=== PATIENT | female | born 1935 | race Caucasian/White ===

== ENCOUNTER → 2017-02-08 09:11 | Outpatient (CLI) | payer MEDICARE, OTHER | LOC: D.MAMMO 09:11 | DX: Z12.31 Encounter for screening mammogram for malignant neoplasm of breast (principal) ==

== ENCOUNTER → 2017-05-23 08:23 | Outpatient (CLI) | payer MEDICARE, OTHER | END | disposition home or self-care (01) | LOC: D.CT 08:23 | DX: R41.3 Other amnesia (principal); R41.0 Disorientation, unspecified ==

== ENCOUNTER → 2018-06-24 10:07 | Outpatient (CLI) | payer MEDICARE, OTHER | END | disposition home or self-care (01) | LOC: D.RAD 10:07 | DX: K92.1 Melena (principal); K59.09 Other constipation; R10.30 Lower abdominal pain, unspecified ==

== ENCOUNTER → 2018-10-31 12:51 | Outpatient (CLI) | payer MEDICARE, OTHER | END | disposition home or self-care (01) | LOC: D.LAB 12:51 | DX: R19.7 Diarrhea, unspecified (principal) ==

== ENCOUNTER 2018-12-10 09:50 | Inpatient (IN) | payer MEDICARE, OTHER ==
[~2018-12-10] VITALS: Ht 165.1 cm; Wt 63.5 kg
[2018-12-10] MEDS ORDERED: PEPCID40 MG PO (09:56)
[2018-12-10] MEDS ORDERED: KLOR-CON 88 MEQ PO (09:56)
[2018-12-10] MEDS ORDERED: BENICAR40 MG PO (09:56)
[2018-12-10] MEDS ORDERED: ZOLOFT50 MG PO (09:56)
[2018-12-10] MEDS ORDERED: CYMBALTA30 MG PO (09:57)
[2018-12-10] MEDS ORDERED: SYNTHROID25 MCG PO (09:57)
[2018-12-10] MEDS ORDERED: TOPROL XL100 MG PO (09:57)
[2018-12-10] MEDS ORDERED: NAMENDA10 MG PO (09:57)
--- NOTE | 2018-12-10 10:25 | NUR ---
ASSISTED PT ON AND OFF THE BSC. URINE SPECIMEN COLLECTED AND SENT TO LAB AT THIS TIME. URINE APPEARS STRAW COLORED AND CLOUDY WITH FOUL ODOR. APPROX 300 ML OUTPUT.
--- NOTE | 2018-12-10 10:30 | NUR ---
PT TO RADIOLOGY AT THIS TIME.
--- NOTE | 2018-12-10 10:42 | NUR ---
PT RETURNED FROM RADIOLOGY AT THIS TIME.
[2018-12-10 10:48] LABS: APPEARANCE HAZY (CLEAR); BILIRUBIN NEGATIVE (NEGATIVE); COLOR STRAW (YELLOW); GLUCOSE NEGATIVE (NEGATIVE); KETONE NEGATIVE (NEGATIVE); NITRITE POSITIVE (NEGATIVE); PROTEIN TRACE mg/dL (NEGATIVE); SPECIFIC GRAVITY 1.005 (1.005-1.020); UROBILINOGEN NORMAL (NORMAL)
--- NOTE | 2018-12-10 10:49 | NUR ---
PT TO RADIOLOGY AT THIS TIME.
[2018-12-10 10:50] LABS: BACTERIA MANY /hpf (NONE SEEN); EPITHELIAL CELLS 0-5 /hpf (0-5); RED CELLS - URINE NONE SEEN /hpf (0-5)
--- NOTE | 2018-12-10 11:05 | NUR ---
PT RETURNED FROM RADIOLOGY
--- NOTE | 2018-12-10 11:14 | NUR ---
ASSISTED PT TO BSC.
--- NOTE | 2018-12-10 11:24 | NUR ---
BARBARA ACHARYA, AT BEDSIDE UPDATING PT AND FAMILY ON POC.
[2018-12-10 11:36] LABS: BASOPHILS 0.4 % (0-2); HEMATOCRIT 36.4 % (36.0-48.0); IMMATURE GRANULOCYTES 0.1 % (0-5); LYMPHOCYTES 29.1 % (15-50); MCH 30.5 pg (26.0-34.0); MCV 92.6 fL (80.0-100.0); MEAN PLATELET VOLUME 10.3 fL (7.4-10.4); MONOCYTES 10.3 % (2-11); NEUTROPHILS 58.1 % (40-80); PLATELET COUNT 208 10x3/uL (130-400); RBC 3.93 10x6/uL (4.00-5.40); RDW 13.1 % (11.5-14.5); WBC 7.1 10x3/uL (4.8-10.8)
--- NOTE | 2018-12-10 11:55 | NUR ---
PROVIDED PT WITH ICE WATER
[2018-12-10 12:25] LABS: ALBUMIN 3.3 g/dL (3.4-5.0); ANION GAP 8.1 mmol/L (8-16); BILIRUBIN - TOTAL 0.5 mg/dL (0.2-1.3); CALCIUM 8.9 mg/dL (8.5-10.1); CARBON DIOXIDE 32.9 mmol/L (21.0-32.0); PROTEIN - SERUM 7.2 g/dL (6.4-8.2)
[2018-12-10 12:34] LABS: THYROID STIMULATING HORMONE 1.75 uIU/mL (0.36-3.74)
[2018-12-10 12:35] VITALS: BP 198/81; BMI 23.3
[2018-12-10 13:32] VITALS: BP 137/73
--- NOTE | 2018-12-10 17:11 | NUR ---
PATIENT RECIEVED FROM ER WITH REPORT OF INCREASED LOWER BACK PAIN, LOWER EXTREMITY WEAKNESS UNABLE TO PERFORM USUAL ADLS AT HOME AND ALSO HAS UTI. ROCEPHIN GIVEN IN ER. DR FOSTER NOTIFIED AND KARLENE STARTED FOR PAIN. PATIENT IS ALERT AND ORIENTED WITH FORGETFULNESS REPORTED BY PATIENT AND FAMILY MEMBER. PATIENT ORIENTED TO ROOM. FALL PRECAUTIONS INITIATED.
[2018-12-10 17:19] VITALS: BP 140/72
[2018-12-10 21:47] VITALS: BP 133/47
--- NOTE | 2018-12-11 02:50 | NUR ---
REC'D. IN BED HOB ELEVATED 40 DEGREE'S.AAO X3 AT PRESENT TIME.CONTINUES TO C/O LOW BACK PAIN THAT RADIATES DOWN BOTH LATERAL SIDES OF LEGS.WIGGLES TOES AND DORSIFLEXES WITHOUT DIFFICULTY.PEDAL PULSE PRESENT.WILL CONTINUE TO MONITOR FOR ANY CHGES.AND FOLLOW CURRENT PLAN OF CARE
[2018-12-11 04:53] VITALS: BP 124/50
--- NOTE | 2018-12-11 08:19 | NUR ---
I have reviewed this patient and I concur with the Shift Assessment completed by the Licensed Practical Nurse today this shift.
--- NOTE | 2018-12-11 08:21 | NUR ---
I have reviewed this patient and I concur with the Shift Assessment completed by the Licensed Practical Nurse today this shift.
[2018-12-11 08:39] VITALS: BP 170/64
[2018-12-11 13:13] VITALS: BP 119/37
[2018-12-11 14:36] VITALS: Ht 165.1 cm; Wt 63.5 kg
--- NOTE | 2018-12-11 15:16 | HP ---
PATIENT: YOGESH MTZ MEDICAL RECORD: [id number] ACCOUNT: [id number] LOCATION:D.[facility] [id number] : 34 ADMISSION DATE: 12/10/18 PCP: PORSHA FOSTER MD HISTORY AND PHYSICAL EXAMINATION DATE OF ADMISSION: 12/10/2018 CHIEF COMPLAINT: Weakness and pain. HISTORY: This is an 83-year-old female with history of dementia, arthritis, and hypertension, who was brought in via EMS complaining of back pain, right hip pain, right knee pain, and right leg pain. She has had a bad right knee for a long time and has been getting steroid injections into the knee by Dr. Hart at [facility]. She states she got up early this morning, went to the bathroom, sat down on the commode, and had a lot of trouble getting back up due to pain and weakness in her back and leg. She did get up and made it back to bed; but when she got up again to use the bathroom, she was not able to get up and states she just could not go anymore with this increased weakness. She was having difficulty ambulating. She was brought to the Emergency Room, where her lab was all okay except urinalysis showed that she had urinary tract infection. An x-ray of the right hip showed nothing acute. CT of the lumbar spine showed degenerative changes and mild right hydronephrosis. She is admitted for UTI, weakness, worsening back pain, and right leg pain. PAST MEDICAL HISTORY: She was diagnosed with dementia approximately a year ago. She has overactive bladder, reflux, hyperlipidemia, hypertension, hypothyroidism, osteoarthritis, and osteopenia. PAST SURGICAL HISTORY: Lumbar laminectomy by Dr. Zavala on 08/18/2015. She has had a bladder suspension. She has had a hysterectomy and had a cholecystectomy in the past. ALLERGIES: TODAY, SHE SAID THAT SHE DOES NOT HAVE ANY ALLERGIES, BUT IT HAS BEEN ON MY RECORDS IN MY OFFICE THAT SHE IS ALLERGIC TO SULFA AND VERAPAMIL. HABITS: No tobacco, alcohol, or drugs. SOCIAL HISTORY: She is . I believe she lives with her sister or sister lives nearby. FAMILY HISTORY: Noncontributory for this 83 year old. HOME MEDICATIONS: Include olmesartan 40 mg a day, sertraline 50 mg a day, Pepcid 40 mg a day, levothyroxine 50 mcg a day, duloxetine 30 mg daily, Namenda 10 mg twice a day, and Toprol-XL 100 once a day. REVIEW OF SYSTEMS: GENERAL: No major weight changes. HEENT: No particular sinus or allergy problems. RESPIRATORY: No history of asthma or emphysema. CARDIAC: No history of heart disease. GASTROINTESTINAL: She has reflux. GENITOURINARY: No significant problems with urinary infections. MUSCULOSKELETAL: She has had arthritis and particular pain in her right knee. Ortho has been trying to avoid joint replacement. HISTORY AND PHYSICAL [id number] JOHNORALIAYOGESH NEUROLOGIC: She has dementia, diagnosed by psychologist. PSYCHIATRIC: She has some depression. PHYSICAL EXAMINATION: VITAL SIGNS: Temperature 98.1, pulse 67, respirations 19, blood pressure 140/72, and O2 sat 96%. NEUROLOGIC: She is easily awakened. She does not appear in acute distress. She seems to be at her baseline of dementia. SKIN: Warm and dry. HEENT: Grossly within normal limits. NECK: Supple. No JVD or bruit. HEART: Regular rate and rhythm without murmur. LUNGS: Clear. ABDOMEN: Soft. MUSCULOSKELETAL: She has some generalized pain in her lower lumbar spine area and pain in her right hip and down her right leg. Straight leg raises are negative for radiating pain. LABORATORY DATA: Basic metabolic panel is okay. Liver functions are okay. Lactic acid normal at 1.1. TSH normal at 1.75. CBC is normal. Urinalysis shows straw hazy urine, positive nitrite, positive 1+ leukocyte esterase, 10-25 white blood cells, many bacteria, and 0-5 epithelial cells. DIAGNOSTIC DATA: Right hip x-ray shows nothing acute, no fracture. CT of the lumbar spine shows multilevel degenerative changes in the lumbar spine. Mild spinal canal narrowing at L3-L4 and L4-L5. Neural foraminal narrowing on the right at L3-L4, bilaterally at L4-L5, and on the left at L5-S1. Moderate amount of fecal material visualized in the colon. Mild right hydronephrosis. ASSESSMENT: 1. UTI with weakness. 2. 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 PLAN: IV antibiotics. Urine culture has been done. Physical therapy consult. We will try some IV steroids and see if that might help her pain-type situation. Other tests and procedures as warranted. TRANSINT:[id number] Voice Confirmation ID: [id number] DOCUMENT ID: [id number] PORSHA FOSTER MD at 1516 CC: [id number] DICTATION DATE: 12/10/181936 RENEWABLE ENERGY CONSULTANT: 12/10/182000 ADM IN [facility] [address] [id number]
[2018-12-11 17:36] VITALS: BP 119/59
[2018-12-11 20:50] VITALS: BP 167/54
--- NOTE | 2018-12-11 21:09 | NUR ---
REC'D. ASSISTED TO BATHROOM. PERICARE GIVEN.BRIEF AND LINENS CHGED.CONTINUE TO C/O LOW BACK AND BILAT. LEG PAIN.WILL CONTINUE TO MONITOR FOR ANY CHGES. AND FOLLOW CURRENT PLAN OF CARE
[2018-12-12 00:50] VITALS: BP 113/62
[2018-12-12 04:47] VITALS: BP 146/57
--- NOTE | 2018-12-12 05:15 | NUR ---
I have reviewed this patient and I concur with the Shift Assessment completed by the Licensed Practical Nurse today this shift.
--- NOTE | 2018-12-12 08:00 | NUR ---
PT RESTING IN BED SITTING UP EATING BREAKFAST. FAMILY AT BEDSIDE. NO ACUTE DISTRESS NOTED. PT VOICES "FEELING BETTER TODAY. I BELIEVE THAT MEDICINE IS HELPING MY BACK". IV TO LEFT FOREARM WITH NS @ 125ML/HR INFUSING VIA PUMP. SITE WITHOUT REDNESS OR EDEMA. DENIES FURTHER NEEDS AT THIS TIME. CL WITHIN REACH. ENCOURAGED TO CALL WITH NEEDS. CONTINUE POC
[2018-12-12 09:48] VITALS: BP 154/64
[2018-12-12 13:19] VITALS: BP 103/52
[2018-12-12] MEDS ORDERED: KEFLEX500 MG PO (13:44)
[2018-12-12] MEDS ORDERED: MEDROL DOSE PACK4 MG PO (13:44)
--- NOTE | 2018-12-12 14:55 | MORECARE ---
CASE MANAGEMENT DISCHARGE SUMMARY PATIENT: YOGESH MTZ UNIT: [id number] ADM DATE: 12/10/18 AGE: 83 : 34 SEX: F ROOM/BED: D.2238 AUTHOR: TRAVIS BARR PHYSICIAN: REFERRING PHYSICIAN: PORSHA FOSTER MD DATE OF SERVICE: 12/12/18 Discharge Plan Patient Name: YOGESH MTZ Facility: [facility]:[place] : 1935 Planned Disposition: Home Anticipated Discharge Date: 12/12/18 Discharge Date: Expected LOS: 2 Initial Reviewer: [email or web address] Initial Review Date: 12/12/2018 Generated: 12/12/18 3:54 pm Comments DCP- Discharge Planning Updated by [email or web address]: Delphine Rangel on 12/12/18 1:[address] Patient Name: YOGESH MTZ Admission Status: ER Accout number: [id number] Admission Date: 12-10-2018 : 1935 Admission Diagnosis:URINARY TRACT INFECTION, SITE NOT SPECIFIED Attending: PORSHA FOSTER Current LOS: 2 Anticipated DC Date: 12-12-2018 Planned Disposition: Home Primary Insurance: MEDICARE A & B Discharge Planning Comments: CM met with patient to complete initial dc planning assessment. CM educated patient on the CM role and verbal consent given by patient to complete assessment. Patient lives in her own home and her adult daughter and son in law live with her. She states she is completely independent with all of her care. She states she only uses her cane as needed. She is ambulating in the room when I entered. Her sister (Ariadne) is in the room and verbal permission received to complete discharge assessment with family at bedside. At discharge patient plans to return and feels this is a safe discharge. CM discussed availability of home health, rehab services, and medical equipment. Patient denied known discharge needs at this time. She is discharging home today. CM will continue to follow and will assist as needed with dc plans/needs. Distance Education Teacher: Delphine Rangel DCPIA - Discharge Planning Initial Assessment Updated by [email or web address]: Delphine Rangel on 12/12/18 2:49 pm * Is the patient Alert and Oriented? Yes * PCP Dr. Foster * Pharmacy [facility] on [address] * Preadmission Environment Home with Family * ADLs Independent * Equipment Cane * List name and contact numbers for known caregivers / representatives who currently or will assist patient after discharge: Ariadne Ashley - [facility] - [phone] Maddie Hurley [facility] - [phone] * Verbal permission to speak to the caregivers and representatives has been obtained from the patient. Yes * Community resources currently utilized None * Additional services required to return to the preadmission environment? No * Can the patient safely return to the preadmission environment? Yes * Has this patient been hospitalized within the prior 30 days at any hospital? No Patient Name: YOGESH MTZ Page [id number] at 1455 All edits/amendments must be made on the electronic document DICTATION DATE: 12/12/181453 SALVAGE CUTTER: JESSIKA 12/12/181453 RPT#: [id number] DC DATE: STATUS: ADM IN [facility] [address] [place] [address] END OF REPORT
--- NOTE | 2018-12-12 15:00 | NUR ---
PT DISCHARGE INSTRUCTIONS GIVEN FOR DISCHARGE. EDUCATED REGARDING UTI, WEAKNESS S/S OF INFECTION. PT AND FAMILY VOICE UNDERSTANDING. DISCUSSED FOLLOW UP APPOINTMENT WITH DR. FOSTER AND MEDICATIONS BEING PRESCRIBED AND CONTINUING HOME MEDICATIONS. IV D/C'D FROM LEFT FOREARM, CATH INTACT. PT TAKEN OUT TO [facility]T VEHICLE VIA W/C WITH ALL PERSONAL BELONGINGS.
== END 2018-12-12 15:10 | disposition home or self-care (01) | DRG 690 ==
LOC: D.ER 09:50 → D.MS 11:54
PROVIDERS: Family Medicine; ADMIT Family Medicine; ATTEND Family Medicine
DX: N39.0 Urinary tract infection, site not specified (principal); Z74.09 Other reduced mobility; F03.90 Unspecified dementia, unspecified severity, without behavioral disturbance, psychotic disturbance, mood disturbance, and anxiety; M47.9 Spondylosis, unspecified; M17.11 Unilateral primary osteoarthritis, right knee

== ENCOUNTER 2019-04-11 17:00 | Emergency (ER) | payer MEDICARE, OTHER ==
[~2019-04-11] VITALS: Ht 165.1 cm; Wt 63.6 kg
[~2019-04-11 17:00] MED LIST: BENICAR40 MG PO; CYMBALTA30 MG PO; KEFLEX500 MG PO; KLOR-CON 88 MEQ PO; MEDROL DOSE PACK4 MG PO; NAMENDA10 MG PO; PEPCID40 MG PO; SYNTHROID25 MCG PO; TOPROL XL100 MG PO; ZOLOFT50 MG PO
[2019-04-11 17:04] VITALS: Ht 165.1 cm; Wt 63.6 kg
[2019-04-11 19:51] VITALS: BP 183/67
== END 2019-04-11 19:51 | disposition home or self-care (01) ==
LOC: D.ER 17:00
DX: R51 Headache (principal); S00.93XA Contusion of unspecified part of head, initial encounter; W01.0XXA Fall on same level from slipping, tripping and stumbling without subsequent striking against object, initial encounter; M54.2 Cervicalgia; I69.319 Unspecified symptoms and signs involving cognitive functions following cerebral infarction; M25.552 Pain in left hip; F03.90 Unspecified dementia, unspecified severity, without behavioral disturbance, psychotic disturbance, mood disturbance, and anxiety

== ENCOUNTER → 2020-09-22 21:18 | Outpatient (CLI) | payer MEDICARE, OTHER ==
[2019-04-11 17:04] VITALS: BMI 23.3
[~2020-09-22 21:18] MED LIST changes: +ACETAMINOPHEN500 M1 PO; +ALTAMIST60 ML NS; +MACRODANTIN50 MG PO; +MIRALAX17 GM PO; +NAPROSYN500 MG PO; +SYNTHROID50 MCG PO; +TOPROL XL50 MG PO; +VESICARE5 MG PO; +VOLTAREN100 GM TOPICAL
[2020-09-22 21:43] LABS: ALBUMIN 3.7 g/dL (3.4-5.0); ANION GAP 18.2 mmol/L (8-16); BILIRUBIN - TOTAL 0.46 mg/dL (0.2-1.3); CALCIUM 9.1 mg/dL (8.5-10.1); CARBON DIOXIDE 20.9 mmol/L (21.0-32.0); CREATININE - SERUM 1.5 mg/dL (0.6-1.3); PROTEIN - SERUM 7.8 g/dL (6.4-8.2)
[2020-09-22 21:46] LABS: POTASSIUM - SERUM 6.1 mmol/L (3.5-5.1)
== END | disposition home or self-care (01) ==
LOC: D.LABREF 21:18
PROVIDERS: ATTEND Family Medicine
DX: I10 Essential (primary) hypertension (principal); F41.8 Other specified anxiety disorders; F03.90 Unspecified dementia, unspecified severity, without behavioral disturbance, psychotic disturbance, mood disturbance, and anxiety

== ENCOUNTER 2020-09-23 19:27 | Inpatient (IN) | payer MEDICARE, OTHER ==
[~2020-09-23] VITALS: Ht 165.1 cm; Wt 68.0 kg
[~2020-09-23 19:27] MED LIST changes: -ACETAMINOPHEN500 M1 PO; -ALTAMIST60 ML NS; -MACRODANTIN50 MG PO; -MIRALAX17 GM PO; -NAPROSYN500 MG PO; -SYNTHROID50 MCG PO; -TOPROL XL50 MG PO; -VESICARE5 MG PO; -VOLTAREN100 GM TOPICAL
[2020-09-23] MEDS ORDERED: VOLTAREN100 GM TOPICAL (19:49)
[2020-09-23] MEDS ORDERED: ACETAMINOPHEN500 M1 PO (19:49)
[2020-09-23] MEDS ORDERED: NAMENDA10 MG PO (19:50)
[2020-09-23] MEDS ORDERED: CYMBALTA30 MG PO (19:50)
[2020-09-23] MEDS ORDERED: SYNTHROID50 MCG PO (19:50)
[2020-09-23] MEDS ORDERED: PEPCID40 MG PO (19:50)
[2020-09-23] MEDS ORDERED: NAPROSYN500 MG PO (19:51)
[2020-09-23] MEDS ORDERED: MIRALAX17 GM PO (19:51)
[2020-09-23] MEDS ORDERED: TOPROL XL50 MG PO (19:51)
[2020-09-23] MEDS ORDERED: ALTAMIST60 ML NS (19:54)
[2020-09-23] MEDS ORDERED: BENICAR40 MG PO (19:54)
[2020-09-23] MEDS ORDERED: MACRODANTIN50 MG PO (19:54)
[2020-09-23] MEDS ORDERED: VESICARE5 MG PO (19:55)
[2020-09-23 20:38] LABS: BASOPHILS 0.4 % (0-2); EOSINOPHILS 6.5 % (0-7); HEMATOCRIT 34.2 % (36.0-48.0); HEMOGLOBIN 11.3 g/dL (12-16); IMMATURE GRANULOCYTES 0.1 % (0-5); LYMPHOCYTE ABS# 1.73 10x3/uL (1.18-3.74); LYMPHOCYTES 21.6 % (15-50); MCH 30.7 pg (26.0-34.0); MCV 92.9 fL (80.0-100.0); MEAN PLATELET VOLUME 9.4 fL (7.4-10.4); MONOCYTES 14.2 % (2-11); NEUTROPHIL ABS# 4.58 10x3/uL (1.56-6.13); NEUTROPHILS 57.2 % (40-80); RBC 3.68 10x6/uL (4.00-5.40); RDW 13.1 % (11.5-14.5)
[2020-09-23 20:39] LABS: PLATELET COUNT 300 10x3/uL (130-400)
[2020-09-23 20:51] LABS: CALCIUM 9.2 mg/dL (8.5-10.1)
[2020-09-23 20:52] LABS: ANION GAP 14.6 mmol/L (8-16); CARBON DIOXIDE 26.5 mmol/L (21.0-32.0); CREATININE - SERUM 1.9 mg/dL (0.6-1.3); POTASSIUM - SERUM 5.1 mmol/L (3.5-5.1)
[2020-09-23 21:05] LABS: ALBUMIN 3.9 g/dL (3.4-5.0); BILIRUBIN - TOTAL 0.35 mg/dL (0.2-1.3); MAGNESIUM - SERUM 2.4 mg/dL (1.8-2.4); PROTEIN - SERUM 7.4 g/dL (6.4-8.2); THYROID STIMULATING HORMONE 6.64 uIU/mL (0.36-3.74)
[2020-09-23 21:08] LABS: BILIRUBIN NEGATIVE (NEGATIVE); KETONE NEGATIVE (NEGATIVE); NITRITE NEGATIVE (NEGATIVE); UROBILINOGEN NORMAL mg/dL (< 2)
[2020-09-23 21:12] LABS: WHITE CELLS - URINE >50 HPF (0-4)
[2020-09-23 21:13] LABS: BACTERIA MANY HPF (NONE SEEN); SQUAMOUS EPITHELIAL 0-5 HPF (0-4)
[2020-09-23 22:13] LABS: APTT 36.1 SECONDS (22.8-39.4); INR 1.05 (0.85-1.17); PROTIME 12.7 SECONDS (11.6-15.0)
[2020-09-23 22:25] LABS: CKMB 1.1 U/L (0.0-3.6); CREATINE KINASE 51 UL (21-215)
[2020-09-23 22:26] LABS: TROPONIN-I < 0.017 ng/mL (0.000-0.060)
[2020-09-24] VITALS (7 sets, daily range): BP systolic 115–186; BP diastolic 53–76; Ht 165.1 cm; Wt 68.0 kg
--- NOTE | 2020-09-24 01:42 | NUR ---
2229--\ PT RECEIVED FROM ER PER RONNI. DAUGHTER AT BEDSIDE. PT ALERT & ORIENTED TO SELF/LOCATION. PLEASANT. VERY SLEEPY. DAUGHTER ANSWERS QUESTIONS FOR ADMISSION. DENTURES IN CUP AT SINK. IS INCONTINENT OF URINE. SLOW, WOBBLY GAIT TO BATHROOM. IV TO LEFT AC VERY POSITIONAL. SCD'S ON/WORKING DENIES ANY PAIN. WILL CONTINUE TO MONITOR
[2020-09-24 05:47] LABS: BASOPHILS 0.6 % (0-2); EOSINOPHILS 5.2 % (0-7); HEMATOCRIT 31.4 % (36.0-48.0); HEMOGLOBIN 10.3 g/dL (12-16); IMMATURE GRANULOCYTES 0.2 % (0-5); LYMPHOCYTE ABS# 1.55 10x3/uL (1.18-3.74); MCH 30.2 pg (26.0-34.0); MCHC 32.8 g/dL (31.0-37.0); MCV 92.1 fL (80.0-100.0); MEAN PLATELET VOLUME 9.3 fL (7.4-10.4); MONOCYTES 13.4 % (2-11); NEUTROPHIL ABS# 6.25 10x3/uL (1.56-6.13); NEUTROPHILS 64.6 % (40-80); PLATELET COUNT 279 10x3/uL (130-400); RBC 3.41 10x6/uL (4.00-5.40); WBC 9.7 10x3/uL (4.8-10.8)
[2020-09-24 05:48] LABS: ALBUMIN 3.2 g/dL (3.4-5.0); ANION GAP 13.9 mmol/L (8-16); BILIRUBIN - TOTAL 0.28 mg/dL (0.2-1.3); CALCIUM 8.4 mg/dL (8.5-10.1); CARBON DIOXIDE 23.9 mmol/L (21.0-32.0); CREATININE - SERUM 1.6 mg/dL (0.6-1.3); MAGNESIUM - SERUM 2.1 mg/dL (1.8-2.4); POTASSIUM - SERUM 4.8 mmol/L (3.5-5.1); PROTEIN - SERUM 6.7 g/dL (6.4-8.2)
--- NOTE | 2020-09-24 07:30 | NUR ---
Lying in bed with eyes closed, respirations slow/deep/even, rouses easily with verbal stimulus, T/R self with assist ad kezia, cont of B/B with episodes of incont, uses incont pads PRN, pericare provided with daily bath and PRN, denies pain/other discomfort at this time, call light/phone/water within reach, no s/s of acute distress observed.
--- NOTE | 2020-09-24 14:36 | NUR ---
REHAB PRESCREEN RECEIVED. WE ARE WAITING ON THE PT AND OT EVALUATIONS IN ORDER TO MAKE OUR DETERMINATION. I HAVE SPOKEN WITH ALEXIA AND THE OCCUPATIONAL THERAPIST WILL NOT BE HERE UNTIL 1529. SHE IS AT THE TOP OF THE LIST TO BE SEEN WHEN SHE ARRIVES. WE WILL LOOK AT THE CHART AGAIN AFTER THAT TIME TO SEE WHAT HER FUNCTIONAL STATUS IS. THANK YOU FOR THIS REFERRAL. SHAYE WAHL RN CLINICAL LIAISON, INPATIENT REHAB.
--- NOTE | 2020-09-24 19:30 | NUR ---
PT IN BED, AAO X 3, RESP EVEN AND UNLABORED,NO DISTRESS NOTED, CL IN REACH, SR UP X 2, PT DAUGHTER AT BEDSIDE AT THIS TIME.
--- NOTE | 2020-09-25 03:18 | NUR ---
I have reviewed this patient and I concur with the Shift Assessment completed by the Licensed Practical Nurse today this shift.
[2020-09-25 06:22] LABS: BASOPHILS 0.6 % (0-2); EOSINOPHILS 5.1 % (0-7); HEMATOCRIT 34.9 % (36.0-48.0); HEMOGLOBIN 11.5 g/dL (12-16); IMMATURE GRANULOCYTES 0.1 % (0-5); LYMPHOCYTE ABS# 1.31 10x3/uL (1.18-3.74); LYMPHOCYTES 19.2 % (15-50); MCH 30.6 pg (26.0-34.0); MCV 92.8 fL (80.0-100.0); MEAN PLATELET VOLUME 9.3 fL (7.4-10.4); NEUTROPHIL ABS# 4.17 10x3/uL (1.56-6.13); PLATELET COUNT 290 10x3/uL (130-400); RBC 3.76 10x6/uL (4.00-5.40); RDW 13.1 % (11.5-14.5)
[2020-09-25 06:23] LABS: WBC 6.8 10x3/uL (4.8-10.8)
[2020-09-25 06:56] LABS: ALBUMIN 3.2 g/dL (3.4-5.0); ANION GAP 14.9 mmol/L (8-16); BILIRUBIN - TOTAL 0.29 mg/dL (0.2-1.3); CARBON DIOXIDE 23.4 mmol/L (21.0-32.0); CREATININE - SERUM 1.2 mg/dL (0.6-1.3); MAGNESIUM - SERUM 2.1 mg/dL (1.8-2.4); POTASSIUM - SERUM 4.3 mmol/L (3.5-5.1); PROTEIN - SERUM 7.2 g/dL (6.4-8.2)
[2020-09-25 07:49] VITALS: BP 164/67
[2020-09-25 15:46] VITALS: BP 175/70
[2020-09-25 20:30] VITALS: BP 187/86
[2020-09-26 00:30] VITALS: BP 168/78
[2020-09-26 04:30] VITALS: BP 201/106
[2020-09-26 06:19] LABS: EOSINOPHILS 4.7 % (0-7); HEMATOCRIT 36.2 % (36.0-48.0); HEMOGLOBIN 11.7 g/dL (12-16); IMMATURE GRANULOCYTES 0.1 % (0-5); LYMPHOCYTE ABS# 1.64 10x3/uL (1.18-3.74); LYMPHOCYTES 23.1 % (15-50); MCH 30.2 pg (26.0-34.0); MCHC 32.3 g/dL (31.0-37.0); MCV 93.5 fL (80.0-100.0); MEAN PLATELET VOLUME 9.2 fL (7.4-10.4); MONOCYTES 14.1 % (2-11); NEUTROPHIL ABS# 4.04 10x3/uL (1.56-6.13); PLATELET COUNT 291 10x3/uL (130-400); RBC 3.87 10x6/uL (4.00-5.40); RDW 13.1 % (11.5-14.5); WBC 7.1 10x3/uL (4.8-10.8)
[2020-09-26 06:49] LABS: ALBUMIN 3.5 g/dL (3.4-5.0); ANION GAP 14.2 mmol/L (8-16); BILIRUBIN - TOTAL 0.31 mg/dL (0.2-1.3); CALCIUM 9.1 mg/dL (8.5-10.1); CARBON DIOXIDE 23.3 mmol/L (21.0-32.0); CREATININE - SERUM 1.2 mg/dL (0.6-1.3); MAGNESIUM - SERUM 2.2 mg/dL (1.8-2.4); POTASSIUM - SERUM 4.5 mmol/L (3.5-5.1); PROTEIN - SERUM 7.9 g/dL (6.4-8.2)
[2020-09-26] MEDS ORDERED: CIPRO500 MG PO (08:34)
[2020-09-26 08:43] VITALS: BP 174/59
--- NOTE | 2020-09-26 12:45 | NUR ---
REPORT CALLED TO FARIDEH MARRERO IN REHAB.
--- NOTE | 2020-09-26 13:30 | NUR ---
REHAB FOLLOW UP: PT ACCEPTED TO INPATIENT REHAB AND CAN GO TO RM: [id number]. THIS INFORMATION HAS BEEN RELAYED TO CONOR SCHAFFER. WE LOOK FOWARD TO PROVIDING CARE TO MRS MTZ. SHAYE WAHL RN CLINICAL LIAISON, INPATIENT REHAB.
--- NOTE | 2020-09-26 13:33 | NUR ---
TRANSFERED TO W/C AND TO REHAB WITH PAPERS, BELONGINGS AND DAUGHTER.
--- NOTE | 2020-09-26 14:23 | MORECARE ---
CASE MANAGEMENT DISCHARGE SUMMARY PATIENT: YOGESH MTZ UNIT: [id number] ADM DATE: 09/23/20 AGE: 85 : 34 SEX: F ROOM/BED: D.2128 AUTHOR: CORTNEY,DOC PHYSICIAN: REFERRING PHYSICIAN: CIERRA KERR DO DATE OF SERVICE: 09/26/20 Case Management Discharge Planning Summary DCP REVIEW SUMMARY ANTICIPATED D/C DATE: 09/26/2020 EXPECTED LOS : 3 CASE STATUS: DCP Initiated INITIAL REVIEW: 09/23/2020 INITIAL REVIEWER: Miguel Becerra FINAL DISCHARGE DISPOSITION: : FINAL REVIEWER: FINAL REVIEW DATE: DCP Focus Questions & Answers QUESTION: ANSWER : PATIENT: YOGESH MTZ ENCOUNTER: [id number] MEDICAL RECORD#: [id number] ADMISSION DATE: 09/23/2020 DISCHARGE DATE: 09/26/2020 ATTENDING MD: CIERRA BENNETT : AGE: 85 MARITAL STATUS: W DC PLAN ID: [id number] FACILITY: [facility] PRINTED ON: 09/26/20 14:23 CT All edits/amendments must be made on the electronic document DICTATION DATE: 09/26/20 142 WOOD ROUTER HAND: JESSIKA 09/26/20 142 RPT#: [id number] DC DATE:09/26/20 STATUS: DIS IN [facility] [address] [place] [address] END OF REPORT
--- NOTE | 2020-09-26 14:34 | MORECARE ---
CASE MANAGEMENT DISCHARGE SUMMARY PATIENT: YOGESH MTZ UNIT: [id number] ADM DATE: 09/23/20 AGE: 85 : 34 SEX: F ROOM/BED: D.5531 AUTHOR: CORTNEY,DOC PHYSICIAN: REFERRING PHYSICIAN: CIERRA KERR DO DATE OF SERVICE: 09/26/20 Case Management Discharge Planning Summary COMMENTS ENTERED DATE: 09/26/20 14:24 CT COMMENT TYPE: Discharge Planning REVIEWER: Miguel Becerra [facility] RE[facility]. CM met with patient to complete DC plan and to evaluate needs. Patient is dependent for dressing and eating and lives with family. Patient has strong family support and her daughter, Tamie Haider, is present. Tamie stated that the patient's home is safe and has electricity and running water. Patient stated that the home has 3 steps to enter and she is able to manage the steps without difficulty. Patient stated that she has no problems paying for medications and she fills her medications at [facility] on [facility]. Tamie stated that the patient's primary care physician will be Dr. Kerr. CM discussed availability of home health, rehab services, and medical equipment. Patient initially declined IPR and stated that she would like to continue with [facility] at home, however after a brief discussion with her daughter, [facility] inpatient Rehab was selected. LILLY for [facility] inpatient Rehab signed and placed in chart. Patient stated she has a walker, cane, and wheelchair at home. Patient voiced no other needs at this time and is satisfied with DC plan. DC IMM delivered, explained, signed by the patient, and placed in chart. Signed form also left with the patient. CM will continue to follow and will assist as needed with dc plans/needs. DCP REVIEW SUMMARY ANTICIPATED D/C DATE: 09/26/2020 EXPECTED LOS : 3 CASE STATUS: DCP Initiated INITIAL REVIEW: 09/23/2020 INITIAL REVIEWER: Miguel Becerra FINAL DISCHARGE DISPOSITION: : FINAL REVIEWER: FINAL REVIEW DATE: DCP Focus Questions & Answers DCP Evaluation QUESTION: ANSWER Patient's current cognitive status: : *Oriented to person, place, situation, time and present Patient's ability to cope with chronic illness : d. No chronic illness Patient gives permission to discuss discharge plans with: (name, relationship and number) : daughter, Tamie Haider, Patient and/or caregiver agree upon recommended discharge plan? : Yes Family / Caregiver's ability to cope with chronic illness: : a. Adequate (ability to meet patient's medical needs, ensures patient attends medical appts.) Functional screen assessment: : Basic needs can adequately be met by self Does the patient have the ability to pay for or attain post discharge needs / services? : Yes Family / Caregiver's ability to cope with chronic illness: : a. Adequate (ability to meet patient's medical needs, ensures patient attends medical appts.) Partial Dependence, assistance required for: : Eating Partial Dependence, assistance required for: : Dressing Partial Dependence, assistance required for: : Bathing Equipment needed for post hospitalization: : None Is there a likelihood that the patient will require additional services to return to the preadmission environment? : Yes Living Arrangements: : Home with others Baseline cognitive status: : *Oriented to person, place, situation, time and present Patient with capacity for self-care or can be cared for in same environment as prior to hospitalization? : Yes Physical environment modification needed / anticipated for discharge: : No Medication Management: : Patient states can read and understand medication labels Medication Management: : Patient states can afford medications Pharmacy name(s): : [facility] Does Patient have transportation to get home and to follow-up medical appointments when discharged from the hospital? : Yes Would patient like to participate in any Care Coordination programs (if applicable): : Not applicable Does the patient have electricity at home? : Yes Does the patient have running water in their house? : Yes Equipment in use: : Wheelchair Equipment in use: : Walker - Rolling Equipment in use: : Cane - Single Leg Mental health screen: : No mental health history DCP Re-evaluation QUESTION: ANSWER Would patient like to participate in any Care Coordination programs (if applicable): : Not applicable PATIENT: YOGESH MTZ ENCOUNTER: [id number] MEDICAL RECORD#: [id number] ADMISSION DATE: 09/23/2020 DISCHARGE DATE: 09/26/2020 ATTENDING MD: CIERRA BENNETT : 1936- AGE: 85 MARITAL STATUS: W DC PLAN ID: [id number] FACILITY: [facility] PRINTED ON: 09/26/20 14:34 CT All edits/amendments must be made on the electronic document DICTATION DATE: 09/26/201433 MANAGER ESTATE: JESSIKA 09/26/20 143 RPT#: [id number] DC DATE:09/26/20 STATUS: DIS IN [facility] [address] [place] [address] END OF REPORT
--- NOTE | 2020-09-27 07:34 | MORECARE ---
CASE MANAGEMENT DISCHARGE SUMMARY PATIENT: YOGESH MTZ UNIT: [id number] ADM DATE: 09/23/20 AGE: 85 : 34 SEX: F ROOM/BED: D.8970 AUTHOR: CORTNEY,DOC PHYSICIAN: REFERRING PHYSICIAN: CIERRA KERR DO DATE OF SERVICE: 09/27/20 Case Management Discharge Planning Summary COMMENTS ENTERED DATE: 09/26/20 14:24 CT COMMENT TYPE: Discharge Planning REVIEWER: Miguel Becerra [facility] RE[facility]. CM met with patient to complete DC plan and to evaluate needs. Patient is dependent for dressing and eating and lives with family. Patient has strong family support and her daughter, Tamie Haider, is present. Tamie stated that the patient's home is safe and has electricity and running water. Patient stated that the home has 3 steps to enter and she is able to manage the steps without difficulty. Patient stated that she has no problems paying for medications and she fills her medications at [facility] on [facility] [address] [facility]. Tamie stated that the patient's primary care physician will be Dr. Kerr. CM discussed availability of home health, rehab services, and medical equipment. Patient initially declined IPR and stated that she would like to continue with [facility] at home, however after a brief discussion with her daughter, [facility] inpatient Rehab was selected. LILLY for [facility] inpatient Rehab signed and placed in chart. Patient stated she has a walker, cane, and wheelchair at home. Patient voiced no other needs at this time and is satisfied with DC plan. DC IMM delivered, explained, signed by the patient, and placed in chart. Signed form also left with the patient. CM will continue to follow and will assist as needed with dc plans/needs. DCP REVIEW SUMMARY ANTICIPATED D/C DATE: 09/26/2020 EXPECTED LOS : 3 CASE STATUS: DCP Complete INITIAL REVIEW: 09/23/2020 INITIAL REVIEWER: Miguel Becerra FINAL DISCHARGE DISPOSITION: 62 : Discharged/Trans to Rehab Facility Including Distinct Units of a Hospital FINAL REVIEWER: Miguel Becerra FINAL REVIEW DATE: 09/27/2020 DCP Focus Questions & Answers DCP Evaluation QUESTION: ANSWER Patient's current cognitive status: : *Oriented to person, place, situation, time and present Patient's ability to cope with chronic illness : d. No chronic illness Patient gives permission to discuss discharge plans with: (name, relationship and number) : daughterTamie, Patient and/or caregiver agree upon recommended discharge plan? : Yes Family / Caregiver's ability to cope with chronic illness: : a. Adequate (ability to meet patient's medical needs, ensures patient attends medical appts.) Functional screen assessment: : Basic needs can adequately be met by self Does the patient have the ability to pay for or attain post discharge needs / services? : Yes Family / Caregiver's ability to cope with chronic illness: : a. Adequate (ability to meet patient's medical needs, ensures patient attends medical appts.) Partial Dependence, assistance required for: : Bathing Partial Dependence, assistance required for: : Dressing Partial Dependence, assistance required for: : Eating Equipment needed for post hospitalization: : None Is there a likelihood that the patient will require additional services to return to the preadmission environment? : Yes Living Arrangements: : Home with others Baseline cognitive status: : *Oriented to person, place, situation, time and present Patient with capacity for self-care or can be cared for in same environment as prior to hospitalization? : Yes Physical environment modification needed / anticipated for discharge: : No Medication Management: : Patient states can afford medications Medication Management: : Patient states can read and understand medication labels Pharmacy name(s): : [facility] Does Patient have transportation to get home and to follow-up medical appointments when discharged from the hospital? : Yes Would patient like to participate in any Care Coordination programs (if applicable): : Not applicable Does the patient have electricity at home? : Yes Does the patient have running water in their house? : Yes Equipment in use: : Cane - Single Leg Equipment in use: : Walker - Rolling Equipment in use: : Wheelchair Mental health screen: : No mental health history DCP Re-evaluation QUESTION: ANSWER Would patient like to participate in any Care Coordination programs (if applicable): : Not applicable PATIENT: YOGESH MTZ ENCOUNTER: [id number] MEDICAL RECORD#: [id number] ADMISSION DATE: 09/23/2020 DISCHARGE DATE: 09/26/2020 ATTENDING MD: CIERRA BENNETT : AGE: 85 MARITAL STATUS: W DC PLAN ID: [id number] FACILITY: [facility] PRINTED ON: 09/27/20 7:34 CT All edits/amendments must be made on the electronic document DICTATION DATE: 09/27/20733 ROLL RECLAIMER: JESSIKA 09/27/2034 RPT#: [id number] DC DATE:09/26/20 STATUS: DIS IN [facility] [address] [facility] [address] END OF REPORT
== END 2020-09-26 13:34 | DRG 689 ==
LOC: D.ER 19:27 → D.M2 21:32
PROVIDERS: Emergency Medicine; ADMIT Family Medicine; ATTEND Family Medicine
DX: N39.0 Urinary tract infection, site not specified (principal); G93.41 Metabolic encephalopathy; E87.1 Hypo-osmolality and hyponatremia; N17.9 Acute kidney failure, unspecified; I12.9 Hypertensive chronic kidney disease with stage 1 through stage 4 chronic kidney disease, or unspecified chronic kidney disease; N18.9 Chronic kidney disease, unspecified; D64.9 Anemia, unspecified; R73.9 Hyperglycemia, unspecified; E78.5 Hyperlipidemia, unspecified; N32.81 Overactive bladder; K21.9 Gastro-esophageal reflux disease without esophagitis; E03.9 Hypothyroidism, unspecified; M19.90 Unspecified osteoarthritis, unspecified site; M85.80 Other specified disorders of bone density and structure, unspecified site; F03.90 Unspecified dementia, unspecified severity, without behavioral disturbance, psychotic disturbance, mood disturbance, and anxiety

== ENCOUNTER 2020-09-26 13:34 | Inpatient (IN) | payer MEDICARE, OTHER ==
[~2020-09-26] VITALS: Ht 165.1 cm; Wt 63.5 kg
[~2020-09-26 13:34] MED LIST changes: +ACETAMINOPHEN500 M1 PO; +ALTAMIST60 ML NS; +CIPRO500 MG PO; +MACRODANTIN50 MG PO; +MIRALAX17 GM PO; +NAPROSYN500 MG PO; +SYNTHROID50 MCG PO; +TOPROL XL50 MG PO; +VESICARE5 MG PO; +VOLTAREN100 GM TOPICAL
[2020-09-26 14:35] VITALS: BP 126/62; BMI 23.3
--- NOTE | 2020-09-26 14:57 | NUR ---
ADMIT TO REHAB FROM ACUTE CARE. BED ALARM PLACED ON BED. SIDE RAILS UP X2. SHE HAS HX OF DEMENTIA AND RECENT UTI. SHE IS CONFUSED. DTR IS WITH HER. NO SKIN BREAKDOWN NOTED.
[2020-09-26 19:00] VITALS: BP 122/60
--- NOTE | 2020-09-26 19:27 | NUR ---
PATIENT RECEIVED SITTING UP IN BED. ASSESSMENT & VITAL SIGNS DONE. NO C/O PAIN OR DISTRESS. BED LOW. ALARM ON. CALL LIGHT WITHIN REACH. WILL CONTINUE TO MONITOR.
--- NOTE | 2020-09-27 03:38 | NUR ---
PATIENT EYES CLOSED. RESPIRATIONS 18 & EVEN. BED LOW.ALARM ON. CALL LIGHT WITHIN REACH. WILL CONTINUE TO MONITOR.
[2020-09-27 07:49] LABS: BASOPHILS 0.9 % (0-2); EOSINOPHILS 4.6 % (0-7); HEMATOCRIT 33.5 % (36.0-48.0); LYMPHOCYTE ABS# 1.58 10x3/uL (1.18-3.74); LYMPHOCYTES 22.7 % (15-50); MCH 30.7 pg (26.0-34.0); MCHC 32.8 g/dL (31.0-37.0); MCV 93.6 fL (80.0-100.0); MEAN PLATELET VOLUME 9.1 fL (7.4-10.4); MONOCYTES 12.5 % (2-11); NEUTROPHIL ABS# 4.13 10x3/uL (1.56-6.13); NEUTROPHILS 59.3 % (40-80); PLATELET COUNT 278 10x3/uL (130-400); RBC 3.58 10x6/uL (4.00-5.40); RDW 13.1 % (11.5-14.5)
--- NOTE | 2020-09-27 07:50 | NUR ---
SHE IS IN BED, CONFUSED. SHE STATES SHE HAS NOT HAD A BM IN A FEW DAYS. INSTRUCTED HER ON THE IS, SHE DID 1000. THE CALL LIGHT IS WITHIN REACH AND THE BED ALARM IS ON.
[2020-09-27 07:55] LABS: ANION GAP 13.9 mmol/L (8-16); CALCIUM 9.1 mg/dL (8.5-10.1); CARBON DIOXIDE 25.1 mmol/L (21.0-32.0); CREATININE - SERUM 1.3 mg/dL (0.6-1.3)
[2020-09-27 08:24] VITALS: BP 140/57
[2020-09-27 12:37] VITALS: Ht 165.1 cm; Wt 63.5 kg
--- NOTE | 2020-09-27 12:44 | RHP ---
PATIENT: YOGESH MTZ MEDICAL RECORD: [id number] ACCOUNT: [id number] LOCATION:[facility] : 34 ADMISSION DATE: 09/26/20 REHABILITATION HISTORY AND PHYSICAL EXAMINATION POST ADMISSION PHYSICIAN EXAMINATION ADMITTING DIAGNOSES: Metabolic encephalopathy secondary to urinary tract infection with Proteus mirabilis. HISTORY OF PRESENT ILLNESS: The patient is an 85-year-old female patient who resides at home with 24-hour sitters. She was requiring supervision only with ADLs. Approximately about a month ago, she began declining and becoming more confused. On 09/23, she presented to the ER. The patient was seen and evaluated. She was found to have progressive weakness, confusion and disorientation. She usually uses a walker at home, but she was not able to use that because she could hardly stand and she was falling. She has been followed by Dr. Deleon frequently for UTIs. She had associated fatigue and malaise. She was admitted for UTI, metabolic encephalopathy, fxdmh-id-loaaooh kidney disease. During her course here, she received IV fluids, IV antibiotics. Her labs were monitored closely. She was also followed by nephrology. At times, her A1c was followed and it was good. She has been receiving some Tylenol for some back pain. She was only able to walk 100 feet with physical therapy with poor functional use of her walker, unsteady gait, difficulty in turning. She is having uncontrolled hypertension at times and the medications adjusted. She has been taking p.r.n. Klonopin, but has been twice a day. Her PCP has been documented that they may add Norvasc, but will have to be closely monitored during her stay. Her labs have been monitored. She does have problems with pain control, decreased activity tolerance, decreased strength, proximal muscle weakness, balance deficits, gait disturbance, impaired mobility. She has a high fall risk and self-care deficits. These are all barriers to her discharge home. She will require intensive therapy to get back to her prior level of function and return home with a sitter. Comorbidities include acute kidney injury, acute mental status changes, chronic kidney disease, cognitive deficits, confusion, debility, decreasing physical functioning, dementia, hypertension, low albumin, incontinence, metabolic encephalopathy, pain, safety awareness, and UTI. PAST MEDICAL HISTORY: Significant for hypertension, hyperlipidemia, overactive bladder, frequent UTIs, gastroesophageal reflux disease, hypothyroidism, osteoarthritis, osteopenia, dementia and depression. PAST SURGICAL HISTORY: None has been documented in her chart. ALLERGIES: SULFA, HYDROCODONE, PREDNISONE, VERAPAMIL, AND MILK. CURRENT MEDICATIONS: Include Floranex daily. She is on VESIcare 5 mg daily. She is on a nasal spray. She is on MiraLax 17 grams daily, metoprolol 50 mg daily, Pepcid 40 mg daily, Synthroid 50 mcg daily, Benicar 40 mg at bedtime, naproxen 500 mg b.i.d., Namenda 10 mg b.i.d., Cymbalta 30 mg at bedtime, Levaquin 500 mg daily, diclofenac sodium to apply topically. She is on Tylenol 500 mg q.6 hours and MiraLax 17 grams in 8 ounces of water daily. HABITS: No alcohol or tobacco use. FAMILY HISTORY: Noncontributory. HISTORY AND PHYSICAL [id number] OUTLER,OPAL SOCIAL HISTORY: The patient hopes to return back home and get back to her prior level of functioning. REVIEW OF SYSTEMS: GENERAL: Does complain of some weakness, fatigue. HEENT: Denies cold, cough or congestion. CARDIOVASCULAR: Denies any chest pain. PHYSICAL EXAMINATION: VITAL SIGNS: Stable. She is afebrile. GENERAL: An elderly female in no acute distress, alert upon exam. HEENT: Normocephalic and atraumatic. Mucosa moist. NECK: Supple. No lymphadenopathy. LUNGS: Clear in upper [place]. No wheeze, rhonchi, rales. HEART: Regular rate and rhythm. Does have a holosystolic murmur. ABDOMEN: Soft, benign, nondistended. Positive bowel sounds times 4. EXTREMITIES: No clubbing, cyanosis or edema. She does have some bruising from recent falls. NEUROLOGIC: She has got diffuse weakness. LABORATORY DATA: White count 7000, H&H of 11 and 33 and platelet count is noted to be 278. Sodium is 136, potassium 5.0, BUN and creatinine of 30 and 1.3 and blood sugar is noted to be 161. ASSESSMENT: This is an 85-year-old female patient admitted to rehab with a working diagnosis of metabolic encephalopathy secondary to urine that was positive for Proteus mirabilis. The patient has potential to make improvements. We instituted the following multidisciplinary therapies including, but not limited to physical, occupational, respiratory, speech, nutritional services, prosthetics and orthotics. Given her complex medical condition and risks for more complications, rehabilitation services cannot be provided at a low level of care such as nursing home facility. PLAN: Admit to [facility] for inpatient therapy to include the following disciplines: A. Physical therapy to improve gait, all transfer skills and bed mobility to a modified independent level. B. Occupational therapy to improve activities of daily living. C. Case management to help with discharge planning and placement options. D. Nutrition to assist with nutritional needs. E. Rehabilitation nursing to assist in monitoring the patient's underlying medical conditions and to assist with any type of bowel or bladder management. 1. The patient's current medication and medical care will be continued. 2. Will be placed on standard fall precautions. 3. The patient's estimated length of stay approximately 7-10 days. 4. We will discuss the patient during care team staff meeting this week. TRANSINT:[id number] Voice Confirmation ID: [id number] DOCUMENT ID: [id number] OSITO notes whether there has been none or any medical/functional change since admission: - No change since preadmission screen. HISTORY AND PHYSICAL [id number] YOGESH MTZ attests patient continues to be appropriate for IRF: - Continues to be appropriate. ALDO CLAUDIO MD at 1244 CC: [id number] DICTATION DATE: 09/27/20 0904 ENROLLED NURSE: 09/27/[address] [facility] [address] [id number]
--- NOTE | 2020-09-27 13:43 | NUR ---
CONSULT WITH A FACESHEET GIVEN TO [facility].
[2020-09-27 19:33] VITALS: BP 155/71
--- NOTE | 2020-09-28 01:34 | NUR ---
PT GOT OUT OF BED WITHOUT CALLING. BED ALARM WENT OFF. WENT INTO ROOM AND SHE WAS TEARFUL STATING SHE WAS ABOUT TO URINATE ALL OVER. ASSISTED HER TO THE WHEELCHAIR AND TO THE RESTROOM. SHE WAS INCONTINENT OF URINE IN HER BRIEF AND ALSO VOIDED IN THE TOILET. BRIEF AND PANTS CHANGED. REASSURED HER THAT IT WAS OKAY, SHE WAS CLEAN AND DRY NOW. ASSISTED HER BACK TO BED. SHE WAS VERY ANXIOUS TO WHAT TO DO NEXT TIME SHE NEEDS TO GO TO THE BATHROOM. REORIENTED HER TO TIME, PLACE AND SITUATION AND SHOWED HER THAT HER CALL LIGHT WAS NEXT TO HER AND SHOWED HER WHAT BUTTON TO PUSH. SHE DID NOT VERBALIZE UNDERSTANDING SHE KEPT PULLING THE DISPOSABLE PAD UNDERNEATH HER AND KEPT ASKING WHAT SHE NEEDED TO DO WITH IT. HER BED IS LOW, BED ALARM ON AND CALL LIGHT WITHIN REACH. SIDE RAILS UP X 3.
--- NOTE | 2020-09-28 05:05 | NUR ---
PT C/O OF NOT BEING ABLE TO HAVE A BOWEL MOVEMENT. SHE CAN NOT RECALL WHEN HER LAST ONE WAS. PRUNE JUICE AND MIRALAX GIVEN. TYLENOL GIVEN FOR BILATERAL KNEE PAIN.
[2020-09-28 07:40] VITALS: BP 185/76
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
--- NOTE | 2020-09-28 13:32 | NUR ---
HOMERO, HER SISTER IS VISITING HER NOW. SHE IS NOT CRYING ANYMORE. THE CALL LIGHT IS WITHIN REACH AND THE BED ALARM IS ON.
--- NOTE | 2020-09-28 14:19 | CN ---
PATIENT NAME:YOGESH MTZ MEDICAL RECORD: [id number] : 33 LOCATION:[id number] ADMIT DATE: 09/26/20 ACCOUNT: [id number] CONSULTING PHYSICIAN: GORDO LERMA MD REFERRING PHYSICIAN: ALDO CLAUDIO MD DATE OF CONSULTATION: 09/27/2020 IDENTIFYING DATA: The patient is 85 years old and she is admitted to rehab secondary to metabolic encephalopathy. CHIEF COMPLAINT: None. HISTORY OF PRESENT ILLNESS: The patient is very tearful when I asked her questions regarding orientation. She denies vegetative depressive symptoms. She feels confused and is obviously overwhelmed by circumstances. ASSESSMENT: Major neurocognitive disorder of the Alzheimer's type. PLAN: The patient is currently taking Namenda. I agree with this. The patient's dementia is not new and it is advanced. She needs to have appropriate support to guide redirect and reassure her. I would also recommend a low dose of an antidepressant. I do not see any evidence of acute dangerousness aside from the need for supervision. TRANSINT:[id number] Voice Confirmation ID: [id number] DOCUMENT ID: [id number] GORDO LERMA MD at 1419 CC: [id number] DICTATION DATE: 09/27/20 1610 MED SURG RN: 09/27/20 [address] [facility] [address] [place] [address]
[2020-09-28 20:02] VITALS: BP 184/61
--- NOTE | 2020-09-28 20:16 | NUR ---
AWAKE AND ALERT. RESTING IN BED WITH RESPIRATIONS UNLABORED. SISTER HERE VISITING. NO ACUTE DISTRESS NOTED. CALL LIGHT IN REACH.
--- NOTE | 2020-09-29 02:15 | NUR ---
RESTING IN BED WITH RESPRIAITONS UNLABORED. NO DISTRESS NOTED. CALL LIGHT IN REACH.
--- NOTE | 2020-09-29 05:53 | NUR ---
QUIET HOURS. NO ACUTE CHANGES IN CONDITION THIS SHIFT. REMAINS CONFUSED BUT IS COOPERATIVE WITH CARE. FALL RISK PREVENTION IN PLACE.
[2020-09-29 06:56] LABS: ANION GAP 12.8 mmol/L (8-16); CALCIUM 9.6 mg/dL (8.5-10.1); CARBON DIOXIDE 24.6 mmol/L (21.0-32.0); CREATININE - SERUM 1.2 mg/dL (0.6-1.3); POTASSIUM - SERUM 4.4 mmol/L (3.5-5.1)
[2020-09-29 07:10] LABS: BASOPHILS 0.5 % (0-2); EOSINOPHILS 3.6 % (0-7); HEMATOCRIT 34.1 % (36.0-48.0); HEMOGLOBIN 11.2 g/dL (12-16); IMMATURE GRANULOCYTES 0.3 % (0-5); LYMPHOCYTE ABS# 1.58 10x3/uL (1.18-3.74); LYMPHOCYTES 19.8 % (15-50); MCH 30.5 pg (26.0-34.0); MCHC 32.8 g/dL (31.0-37.0); MCV 92.9 fL (80.0-100.0); MEAN PLATELET VOLUME 9.4 fL (7.4-10.4); MONOCYTES 11.5 % (2-11); NEUTROPHIL ABS# 5.14 10x3/uL (1.56-6.13); NEUTROPHILS 64.3 % (40-80); PLATELET COUNT 285 10x3/uL (130-400); RBC 3.67 10x6/uL (4.00-5.40); RDW 12.9 % (11.5-14.5)
[2020-09-29 08:05] VITALS: BP 192/84
--- NOTE | 2020-09-29 15:55 | NUR ---
CARE TEAM MEETING: SPOKE WITH PATIENT DAUGHTER THAT LIVES OUT OF STATE. AT DISCHARGE PATIENT WILL HAVE 24 HOUR CARE. DME AT HOME IS A CANE AND A WALKER. SHE IS A CLIENT OF [facility]. ADDRESSED PATIENTS DAUGHTER QUESTIONS AND CONCERNS. WILL CONTINUE TO FOLLOW WITH PATIENT.TENATIVE DC DATE IS 10/08/20.
--- NOTE | 2020-09-29 19:00 | NUR ---
PT IN BED, NO IMMEDIATE NEEDS NOTED, FLUIDS/CL WITHIN REACH
[2020-09-29 20:40] VITALS: BP 188/77
[2020-09-30 07:56] VITALS: BP 148/63
[2020-09-30 19:30] VITALS: BP 152/68
--- NOTE | 2020-10-01 02:26 | NUR ---
PTS BED ALARM WAS GOING OFF. SHE WAS GETTING OUT OF BED TO GO TO THE RESTROOM. ASSISTED HER INTO THE WHEELCHAIR AND INTO THE BATHROOM. SHE WAS INCONTINENT OF URINE AND ALSO VOIDED IN THE TOILET. BRIEF CHANGED. ASSISTED BACK TO BED. SHE DENIES PAIN OR NEEDS. HER BED IS LOW, BED ALARM ON AND CALL LIGHT IS WITHIN REACH.
[2020-10-01 07:48] VITALS: BP 151/78
--- NOTE | 2020-10-01 07:48 | NUR ---
SHE WAS ASLEEP, SHE IS CONFUSED, BUT SHE SAYS SHE IS LESS CONFUSED. DENIES ANY PAIN AT THIS TIME. THE BED ALARM IS ON THE BED ALARM IS ON.
[2020-10-01 08:08] LABS: BASOPHILS 0.5 % (0-2); HEMATOCRIT 32.9 % (36.0-48.0); HEMOGLOBIN 10.7 g/dL (12-16); IMMATURE GRANULOCYTES 0.1 % (0-5); LYMPHOCYTE ABS# 1.47 10x3/uL (1.18-3.74); LYMPHOCYTES 20.1 % (15-50); MCH 30.2 pg (26.0-34.0); MCHC 32.5 g/dL (31.0-37.0); MCV 92.9 fL (80.0-100.0); MEAN PLATELET VOLUME 9.2 fL (7.4-10.4); MONOCYTES 12.6 % (2-11); NEUTROPHIL ABS# 4.59 10x3/uL (1.56-6.13); NEUTROPHILS 62.7 % (40-80); PLATELET COUNT 304 10x3/uL (130-400); RBC 3.54 10x6/uL (4.00-5.40); RDW 12.7 % (11.5-14.5); WBC 7.3 10x3/uL (4.8-10.8)
[2020-10-01 08:38] LABS: ANION GAP 15.4 mmol/L (8-16); CALCIUM 9.2 mg/dL (8.5-10.1); CARBON DIOXIDE 25.2 mmol/L (21.0-32.0); CREATININE - SERUM 1.3 mg/dL (0.6-1.3); POTASSIUM - SERUM 4.6 mmol/L (3.5-5.1)
--- NOTE | 2020-10-01 11:09 | NUR ---
Nutrition Follow-up: Diet: Diabetic PO intake: ~58% average x 6 meals recorded (09/27-09/28), no recent PO intake recorded. Spoke with patient and family at patient bedside. They feel that her appetite is good and that she is eating well currently. Last BM: "yesterday or day before yesterday"- per patient/patient family Wt: 140# (09/27/20) Meds noted: probiotics, miralax, SSI, abx Labs noted: GFR 41(L), Glu 137(H) Recommend continue current diet. RD will follow-up 10/05/20.
[2020-10-01 19:34] VITALS: BP 136/58
--- NOTE | 2020-10-01 19:53 | NUR ---
PATIENT RECEIVED SITTING UP IN BED. ASSESSMENT & VITAL SIGNS DONE. FAMILY AT BEDSIDE. ALARM ON. CALL LIGHT WITHIN REACH. WILL CONTINUE TO MONITOR.
--- NOTE | 2020-10-02 01:12 | NUR ---
I have reviewed this patient and I concur with the Shift Assessment completed by the Licensed Practical Nurse today this shift.
--- NOTE | 2020-10-02 01:53 | NUR ---
PATIENT USED CALL LIGHT FOR ASSIST. PATIENT HAD VOID INCONTINENCE IN BRIEF & BED. PATIENT ASSIST INTO WHEELCHAIR. PATIENT VOID IN COMMODE. BUTTOCKS & PERIAREA CLEANED. PATIENT NEW BRIEF PULLED UP BY PATIENT. PATIENT SAT IN WHEELCHAIR. RETURNED TO CLEAN LOW BED. ALARM ON. CALL LIGHT WITHIN REACH. WILL CONTINUE TO MONITOR.
--- NOTE | 2020-10-02 01:58 | NUR ---
PATIENT USED CALL LIGHT FOR ASSIST. PATIENT HAD BACK PAIN. PATIENT GIVEN TYLENOL PER ORDER. ALARM ON. WILL CONTINUE TO MONITOR.
[2020-10-02 07:00] VITALS: BP 148/71
--- NOTE | 2020-10-02 08:24 | NUR ---
SHE IS SETTING UP IN THE WHEELCHAIR EATING BREAKFAST. RATES HER PAIN A 3. THE CALL LIGHT IS WITHIN REACH AND THE CHAIR ALARM IS ON.
[2020-10-02 19:09] VITALS: BP 163/64
--- NOTE | 2020-10-03 00:58 | NUR ---
I have reviewed this patient and I concur with the Shift Assessment completed by the Licensed Practical Nurse today this shift.
[2020-10-03 08:00] VITALS: BP 178/75
--- NOTE | 2020-10-03 08:38 | NUR ---
PATIENT UP IN CHAIR EATING BREAKFAST AT THIS TIME. DENIES ANY NEEDS. REPORTS SHE SLEPT WELL AND IS READY FOR THE DAY, CALL LIGHT IS IN REACHA ND BED IS IN LOW POSITION. REMINDED PATIENT TO USE THE CALL LIGHT WHEN SHE IS READY TO GET BACK IN THE BED. WILL CONTINUE TO MONITOR
[2020-10-03 19:00] VITALS: BP 194/76
--- NOTE | 2020-10-03 22:21 | NUR ---
PATIENT RECIEVED IN BED SITTING UP. ASSESSMENT & VITAL SIGNS DONE. NO C/O PAIN OR DISTRESS. BED LOW. ALARM ON. CALL LIGHT WITHIN REACH. WILL CONTINUE TO MONITOR.
--- NOTE | 2020-10-04 03:43 | NUR ---
PATIENT AWAKE ALARM SOUNDING. PATIENT NEEDED TO GO TO THE BATHROOM. VOID ONLY. RETURNED TO LOW BED. ALARM ON. CALL LIGHT & BESIDE TABLE WITHIN REACH. WILL CONTINUE TO MONITOR.
[2020-10-04 08:30] VITALS: BP 168/87
--- NOTE | 2020-10-04 08:30 | NUR ---
PT RESTING IN BED WITH EYES OPEN CALL LIGHT IN REACH WILL MONITER
[2020-10-04 09:27] LABS: BASOPHILS 0.9 % (0-2); HEMATOCRIT 34.1 % (36.0-48.0); HEMOGLOBIN 11.3 g/dL (12-16); IMMATURE GRANULOCYTES 0.1 % (0-5); LYMPHOCYTE ABS# 1.74 10x3/uL (1.18-3.74); MCH 30.5 pg (26.0-34.0); MCHC 33.1 g/dL (31.0-37.0); MCV 92.2 fL (80.0-100.0); MEAN PLATELET VOLUME 9.6 fL (7.4-10.4); MONOCYTES 13.2 % (2-11); NEUTROPHIL ABS# 3.72 10x3/uL (1.56-6.13); NEUTROPHILS 55.8 % (40-80); PLATELET COUNT 299 10x3/uL (130-400); RDW 12.7 % (11.5-14.5); WBC 6.7 10x3/uL (4.8-10.8)
[2020-10-04 09:37] LABS: ANION GAP 12.2 mmol/L (8-16); CALCIUM 9.4 mg/dL (8.5-10.1); CARBON DIOXIDE 28.4 mmol/L (21.0-32.0); CREATININE - SERUM 1.2 mg/dL (0.6-1.3); POTASSIUM - SERUM 4.6 mmol/L (3.5-5.1)
--- NOTE | 2020-10-04 18:34 | NUR ---
PT RESTING IN BED WITH EYES OPEN CALL LIGHT IN REACH WILL MONITER SISTER AT BEDSIDE CALL LIGHT IN REACH WILL MONITER
[2020-10-04 21:25] VITALS: BP 172/51
[2020-10-05 07:46] VITALS: BP 172/78
--- NOTE | 2020-10-05 08:00 | NUR ---
PT RESTING IN BED WITH EYES OPEN CALL LIGHT IN REACH WILL MONITER
--- NOTE | 2020-10-05 10:55 | NUR ---
Nutrition Re-Assessment Diet: Diabetic PO intake: 100% x 3 meals yesterday. She states that her appetite is good. Last BM: 10/01/20 (per nursing flowsheet), "yesterday" per patient Wt: 140# (09/27/20) Meds noted: probiotics, miralax, SSI, abx Labs noted: POC Glu 134(H) Estimated nutrition needs: [id number] nia (20-25 Act), 55-64gms protein (0.8-1), 1700-2050mL fluid Nutrition diagnosis: Altered nutrition related lab values r/t T2DM AEB elevated blood glucose. Nutrition Goals: -PO intake =/>75% meals -Stable weight -BM at least q 3 days -Blood glucose to trend WNL Recommendations/Interventions: -Recommend continue current diet. Will continue to honor food preferences. -RD will follow-up within 7 days.
--- NOTE | 2020-10-05 18:07 | NUR ---
PT RESTING IN BED WITH EYES OPEN CALL LIGHT IN REACH NO PROBLEMS WILL MONITER
--- NOTE | 2020-10-05 19:29 | NUR ---
PT IN BED, WALKED TO TOILET WITH ASSISTANCE, FLUIDS/CL WITHIN REACH, ALARMS ON AND WORKING
[2020-10-05 20:28] VITALS: BP 161/54
--- NOTE | 2020-10-05 23:00 | NUR ---
PT IV STARTED 24G IN LEFT HAND, DAYSHIFTS VANCOMYCIN/250ML STARTED AT 107ML/HR DUE TO SMALL/WEAK VEINS OF PT, VEINS HOLDING UP NOT BLOWING, NO LEAKS, PT SLEEPING, NO C/O PAIN OR SWELLING
[2020-10-06 07:38] VITALS: BP 149/83
--- NOTE | 2020-10-06 14:19 | NUR ---
CARE TEAM MEETING: PATIENT SISTER ATTENDED THE MEETING. HER QUESTIONS AND CONCERNS WERE ADDRESSD. PATIENT TENATIVE DISCHARGE DATE IS 10/08/20. SHE IS A CLIENT OF [facility] [employer] [facility] AND IS A NEW PATIENT TO DR. CAPUTO. WILL CONTINUE TO FOLLOW WITH PATIENT.
--- NOTE | 2020-10-06 19:20 | NUR ---
PT RESTING WITH EYES CLOSED, AROUSES TO SOFT VERBAL STIMULATION, VS OBTAINED PER FITNESS INSTRUCTOR, PT DENIES FLATUS, BM TODAY, AND VOIDING WITH NO DIFFICULTY, PT RATES BACK PAIN 5/10, PT POSITIONED TO LEFT SIDE WITH PILLOW BEHIND BACK FOR COMFORT AND SUPPORT, PT INST ON AND ENC TO USE I.S., PT REPORTS USING I.S. INST, PT INST TO USE CALL LIGHT WHEN NEEDING TO GET UP TO BR, PT VERBALIZES UNDERSTANDING, DENIES NEEDS AT THIS TIME, FALL PRECAUTIONS IN PLACE
--- NOTE | 2020-10-06 20:24 | NUR ---
PT RESTING WITH EYES CLOSED, RESP QUIET, NO DISTRESS NOTED, LEFT UNDISTURBED AT THIS TIME, BED IN LOW POSITION, SIDE RAILS X 2, CALL LIGHT IN REACH, BED ALARM ON AND WORKING PROPERLY
[2020-10-06 20:30] VITALS: BP 153/61
--- NOTE | 2020-10-06 21:56 | NUR ---
PT RESTING WITH EYES CLOSED, AROUSES TO SOFT VERBAL STIMULATION, ADM 2100 MEDS PO PER MD ORDERS, SEE EMAR, OBTAINED FSBS
--- NOTE | 2020-10-06 22:01 | NUR ---
ADM INSULIN PER MD ORDERS, SEE EMAR, PT UP TO BR VIA WC WITH ASSISTANCE, VOIDED WITH NO DIFFICULTY, PT TO SINK, WASHES HANDS, BACK TO BED, SNACK PROVIDED, DENIES FURTHER NEEDS, FALL PRECAUTIONS IN PLACE
--- NOTE | 2020-10-07 | NUR ---
PT AWAKE, C/O BACK AND KNEE PAIN, ADM TYLENOL PO AND VOLTAREN TOPICALLY PER MD ORDERS, SEE EMAR, PT DENIES FURTHER NEEDS, CALL PRECAUTIONS IN PLACE
--- NOTE | 2020-10-07 02:15 | NUR ---
PT RESTING WITH EYES CLOSED, RESP QUIET, NO DISTRESS NOTED, LEFT UNDISTURBED AT THIS TIME, FALL PRECAUTIONS IN PLACE
--- NOTE | 2020-10-07 04:12 | NUR ---
PT RESTING WITH EYES CLOSED, RESP QUIET, NO DISTRESS NOTED, LEFT UNDISTURBED AT THIS TIME, FALL PRECAUTIONS IN PLACE
--- NOTE | 2020-10-07 04:45 | NUR ---
PT UP TO BR VIA AMB WITH ASSISTANCE, VOIDED WITH NO DIFFICULTY, BRIEF CHANGED, PT TO SINK, WASHES HANDS, PT TO BED, DENIES FURTHER NEEDS OR PAIN, FRESH H20 SERVED, TRASH REMOVED, FALL PRECAUTIONS IN PLACE
--- NOTE | 2020-10-07 06:00 | NUR ---
PT RESTING WITH EYES CLOSED, AROUSES TO SOFT VERBAL STIMULATION, OBTAINED FSBS, ADM SYNTHROID PER MD ORDERS, SEE EMAR, PT DENIES NEEDS OR PAIN AT THIS TIME, FALL PRECAUTIONS IN PLACE
[2020-10-07 08:14] VITALS: BP 208/81
--- NOTE | 2020-10-07 08:22 | NUR ---
SHE IS LYING IN BED, I WOKE HER UP TO TAKE HER MEDICAITONS. SHE DID NOT HAVE ANY PROBLEMS TAKING THEM. SHE IS SETTING UP IN THE WHEELCHAIR FOR BREAKFAST. THE CALL LIGHT IS WITHIN REACH AND THE BED ALARM IS ON.
--- NOTE | 2020-10-07 11:16 | PN ---
PATIENT:YOGESH MTZ MEDICAL RECORD: [id number] LOCATION:[facility] ADMISSION DATE: 09/26/20 PROGRESS NOTE DATE OF SERVICE: 10/05/2020 SUBJECTIVE: The patient's case was discussed with staff. She has no new complaint. OBJECTIVE: The patient is depressed in her mood, but has very little insight about her situation. ASSESSMENT: Dementia. PLAN: The patient's primary problem is dementia. I agree with the use of the Celexa, but also suspect that part of what is going on with her tearfulness is that she cannot process information in her environment. I am going to recommend and will start her on a low dose of scheduled Xanax. TRANSINT:[id number] Voice Confirmation ID: [id number] DOCUMENT ID: [id number] GORDO LERMA MD at 1116 CC: [id number] DICTATION DATE: 10/05/20 1620 CUT OUT AND MARKING MACHINE OPERATOR: 10/05/20 2207 ADM IN [place] [id number] [place] [id number]
[2020-10-07 20:36] VITALS: BP 164/70
--- NOTE | 2020-10-08 01:17 | NUR ---
PT RESTING WITH EYES CLOSED. RESPIRATIONS EVEN AND UNLABORED. BED ALARM ON, BED IS LOW AND CALL LIGHT IS WITHIN REACH.
[2020-10-08 08:11] VITALS: BP 126/73
--- NOTE | 2020-10-08 08:13 | NUR ---
PATIENT IS ALERT WITH SOME CONFUSION NOTED. SITTING UP IN A WHEELCHAIR AT BEDSIDE. CHAIR ALARM ON. CALL LIGHT WITHIN REACH. VOICES NO NEEDS AT THIS TIME. WILL CONTINUE WITH PLAN OF CARE
[2020-10-08] MEDS ORDERED: CELEXA20 MG PO (08:25)
--- NOTE | 2020-10-08 08:38 | NUR ---
PATIENT ALERT/ORIENT. SITTING UP IN WHEELCHAIR TO EAT BREAKFAST. CHAIR ALARM ON. CALL LIGHT WITHIN REACH. VOICES NO NEEDS AT THIS TIME. WILL CONTINIUE WITH PLAN OF CARE
--- NOTE | 2020-10-08 10:04 | NUR ---
PATIENTS DAUGHTER HERE. DISCHARGE ORDERS GONE OVER WITH PATIENT AND DAUGHTER. DISCHARGE MEDCIATIONS CALLED INTO [facility].
--- NOTE | 2020-10-08 10:22 | NUR ---
PATIENT DISCHARGING HOME TODAY WITH FAMILY. [facility] WILL RESUME THERAPY WITH PATIENT.NO COMPARE DATA REVIEWED.LILLY SIGNED, IMM SERVED AND EXPLAINED, ONE GIVEN TO PATIENT AND ONE FILED IN CHART. NO NEW DME NEEDED AT THIS TIME. DR. CAPUTO 10/27/20 @ 8:30. DISCHARGE INSTRUCTIONS FAXED TO PCP, HOME HEALTH AND REVIEWED WITH PATIENT AND SISTER.
== END 2020-10-08 10:06 | disposition home health service (06) | DRG 71 ==
LOC: D.REHAB 13:34
PROVIDERS: ADMIT Emergency Medicine; ATTEND Emergency Medicine
DX: G93.41 Metabolic encephalopathy (principal); N39.0 Urinary tract infection, site not specified; N17.9 Acute kidney failure, unspecified; E87.1 Hypo-osmolality and hyponatremia; I12.9 Hypertensive chronic kidney disease with stage 1 through stage 4 chronic kidney disease, or unspecified chronic kidney disease; N18.9 Chronic kidney disease, unspecified; R53.81 Other malaise; F03.90 Unspecified dementia, unspecified severity, without behavioral disturbance, psychotic disturbance, mood disturbance, and anxiety; R32 Unspecified urinary incontinence; R52 Pain, unspecified; K21.9 Gastro-esophageal reflux disease without esophagitis; E03.9 Hypothyroidism, unspecified; M19.90 Unspecified osteoarthritis, unspecified site; D64.9 Anemia, unspecified; R41.89 Other symptoms and signs involving cognitive functions and awareness; R26.2 Difficulty in walking, not elsewhere classified; E87.8 Other disorders of electrolyte and fluid balance, not elsewhere classified; R53.83 Other fatigue

== ENCOUNTER → 2020-11-03 16:29 | Outpatient (CLI) | payer MEDICARE, OTHER ==
[2020-09-27 12:37] VITALS: BMI 23.2
[~2020-11-03 16:29] MED LIST changes: +CELEXA20 MG PO
[2020-11-03 16:49] LABS: BASOPHILS 0.9 % (0-2); EOSINOPHILS 1.3 % (0-7); HEMATOCRIT 30.6 % (36.0-48.0); LYMPHOCYTES 17.6 % (15-50); MCHC 32.9 g/dL (31.0-37.0); MCV 94.2 fL (80.0-100.0); MEAN PLATELET VOLUME 7.4 fL (7.4-10.4); NEUTROPHILS 71.2 % (40-80); PLATELET COUNT 253 10x3/uL (130-400); RBC 3.25 10x6/uL (4.00-5.40); RDW 13.8 % (11.5-14.5)
[2020-11-03 17:15] LABS: BILIRUBIN NEGATIVE (NEGATIVE); KETONE NEGATIVE (NEGATIVE); NITRITE NEGATIVE (NEGATIVE); UROBILINOGEN NORMAL mg/dL (< 2)
[2020-11-03 17:44] LABS: ALBUMIN 3.4 g/dL (3.4-5.0); ANION GAP 14.3 mmol/L (8-16); BILIRUBIN - TOTAL 0.32 mg/dL (0.2-1.3); CALCIUM 8.5 mg/dL (8.5-10.1); CARBON DIOXIDE 24.3 mmol/L (21.0-32.0); CREATININE - SERUM 1.5 mg/dL (0.6-1.3); POTASSIUM - SERUM 4.6 mmol/L (3.5-5.1); PROTEIN - SERUM 6.4 g/dL (6.4-8.2)
== END | disposition home or self-care (01) ==
LOC: D.LABREF 16:29
PROVIDERS: ATTEND Family Medicine
DX: N39.0 Urinary tract infection, site not specified (principal)